=== PATIENT | female | born 1990 | race African-American/Black ===

== ENCOUNTER 2016-07-11 15:24 | Emergency (ER) | payer OTHER ==
[~2016-07-11] VITALS: Ht 154.9 cm; Wt 102.0 kg
[~2016-07-11 15:24] MED LIST: FERR1TAB36 PO; PROP10TA6 PO; SPRI28TA PO
[2016-07-11 15:27] VITALS: BP 127/72; PULSE 88; RESP 14; TEMP 98.2; O2SAT 98
[2016-07-11] MEDS ORDERED: SODIUM CHLOR 0.9% 1000 ML INJ 1,000 ML IV SCH (16:40)
[2016-07-11 16:42] VITALS: RESP 17; O2SAT 99
[2016-07-11 16:48] VITALS: BP 117/58; PULSE 78; RESP 17; O2SAT 99
[2016-07-11 17:11] LABS: AUTOMATED NEUTROPHIL # 5.3 TH/MM3 (1.8-7.7); BASOPHIL # 0.1 TH/MM3 (0-0.2); BASOPHIL % 0.9 % (0.0-2.0); EOSINOPHIL # 0.5 TH/MM3 (0-0.4); EOSINOPHIL % 5.4 % (0.0-4.0); HEMATOCRIT 30.1 % (35.0-46.0); LYMPH % 24.6 % (9.0-44.0); LYMPHOCYTE # 2.1 TH/MM3 (1.0-4.8); MEAN CELL VOLUME 66.3 FL (80.0-100.0); MEAN CORPUSCULAR HEMOGLOBIN 19.9 PG (27.0-34.0); MONO % 6.2 % (0.0-8.0); NEUT % 62.9 % (16.0-70.0); PLATELET COUNT 378 TH/MM3 (150-450); RED BLOOD COUNT 4.54 MIL/MM3 (4.00-5.30); RED CELL DISTRIBUTION WIDTH 22.2 % (11.6-17.2); WHITE BLOOD COUNT 8.5 TH/MM3 (4.0-11.0)
[2016-07-11] MEDS ORDERED: ACETAMINOPHEN/HYDROcodone 325 MG/5 MG TAB PO ONE (17:15)
[2016-07-11 17:19] LABS: HEMO FLAGS AUTO DIFF
[2016-07-11 17:21] LABS: APTT (PATIENT) 25.9 SEC (24.3-30.1); PROTHROMBIN TIME - PATIENT 11.4 SEC (9.8-11.6)
--- NOTE | 2016-07-11 17:26 | RADRPT ---
EXAM DATE/TIME: 07/11/2016 17:05 [facility] COMPARISON: CHEST PA & LAT, December 02, 2012, 20:55. INDICATIONS : Chest pain. MEDICAL HISTORY : None. SURGICAL HISTORY : None. ENCOUNTER: Initial ACUITY: 4 - 6 days PAIN SCORE: 6/10 LOCATION: Bilateral chest FINDINGS: A single view of the chest demonstrates the lungs to be symmetrically aerated without evidence of mas s, infiltrate or effusion. The cardiomediastinal contours are unremarkable. Osseous structures are intact. CONCLUSION: No acute disease. Edward Reeves MD on July 11, 2016 at 17:25 Board Certified Radiologist. This report was verified electronically.
--- NOTE | 2016-07-11 17:27 | RADRPT ---
EXAM DATE/TIME: 07/11/2016 17:10 [facility] COMPARISON: CT BRAIN W/O CONTRAST, January 08, 2015, 0:51. INDICATIONS : Cephalgia today. RADIATION DOSE: 44.36 CTDIvol (mGy) MEDICAL HISTORY : Cardiovascular disease. Hypertension. SURGICAL HISTORY : Cholecystectomy. ENCOUNTER: Initial ACUITY: 1 day PAIN SCALE: 6/10 LOCATION: cranial TECHNIQUE: Multiple contiguous axial images were obtained of the head. Using automated exposure control and adj ustment of the mA and/or kV according to patient size, radiation dose was kept as low as reasonably a chievable to obtain optimal diagnostic quality images. FINDINGS: CEREBRUM: The ventricles are normal for age. No evidence of midline shift, mass lesion, hemorrhage or acute in farction. No extra-axial fluid collections are seen. POSTERIOR FOSSA: The cerebellum and brainstem are intact. The 4th ventricle is midline. The cerebellopontine angle i s unremarkable. EXTRACRANIAL: The visualized portion of the orbits is intact. SKULL: The calvaria is intact. No evidence of skull fracture. CONCLUSION: Normal examination for a patient of this age. No significant change has occurred. Travis Roberts MD on July 11, 2016 at 17:25 Board Certified Radiologist. This report was verified electronically.
[2016-07-11 17:40] LABS: ANION GAP 7 MEQ/L (5-15); BICARBONATE 24.4 MEQ/L (21.0-32.0); BLOOD UREA NITROGEN 7 MG/DL (7-18); CHLORIDE 106 MEQ/L (98-107); GLOMERULAR FILTRATION RATE 140 ML/MIN (>89); MAGNESIUM 2.1 MG/DL (1.5-2.5); SODIUM (NA) 137 MEQ/L (136-145)
[2016-07-11 17:47] LABS: OVALOCYTES 1+ (NORMAL)
[2016-07-11 17:48] LABS: SCAN/DIFF AUTO DIFF CONFIRMED
[2016-07-11 17:51] LABS: POTASSIUM 4.7 MEQ/L (3.5-5.1)
[2016-07-11 18:20] VITALS: RESP 16
[2016-07-11] MEDS ORDERED: ZOFR4TAB PO (18:39)
[2016-07-11] MEDS ORDERED: TRAM50TA PO (18:39)
--- NOTE | 2016-07-11 18:47 | PD ---
HPI Chief Complaint: Chest Pain Time Seen by Provider: 18:41 Travel History International Travel<30 days: No Contact w/Intl Traveler<30days: No Traveled to known affect area: No History of Present Illness HPI 25-year-old female that presents to the ED for evaluation of chest pain and headache. Per patient she's had chest pain or headache for the past 2 days. Per patient she has a history of irregular menses with severe bleeding and anemia. Per patient she went to see Dr. White today for her follow-up and to get evaluation for this and she was sent here secondary to chest pain. Also history of anemia. She states that the chest pain is on and off. Feels like a pressure. Patient states that she did have some nausea and some headache for the past couple days and she states that is a little more severe than her usual but she does have a history of migraine headaches in the past and does feel somewhat similar. She denies any shortness of breath. She denies any abdominal pain. She states that she is currently on her menses and her menses his heavy but denies any clots or . She states that she is compliant with her medications. She states that her headache is 6 out of 10 and her pain on the chest is 7 out of 10. Nothing makes her better worse. No radiation. The pain on the headache is constant and achy. Pressure-like. She has no allergies to medication. PFSH Past Medical History Hx Anticoagulant Therapy: No Anemia: Yes (R/T DYSFUNCTIONAL UTERINE BLEEDING) Asthma: Yes (CHILDHOOD) Anxiety: Yes Depression: Yes Heart Rhythm Problems: Yes (TACHYCARDIA) Cardiovascular Problems: Yes (tachycardia) Chemotherapy: No Chest Pain: Yes Cerebrovascular Accident: No Diabetes: No Diminished Hearing: No Gastrointestinal Disorders: Yes (GALLBLADDER REMOVED ) GERD: Yes Headaches: Yes Respiratory: No Immunizations Current: Yes Migraines: Yes Tetanus Vaccination: > 5 Years Influenza Vaccination: No ?: Not LMP: 07/09/16 : 0 Para: 0 Miscarriage: 0 : 0 Past Surgical History Cholecystectomy: Yes (when pt. was 11 y.o) Hysterectomy: No Social History Alcohol Use: No Tobacco Use: Yes (wear glasses) Substance Use: No Allergies-Medications (Allergen,Severity, Reaction): Coded Allergies: No Known Allergies (Verified , 07/11/16) Reported Meds & Prescriptions Reported Meds & Active Scripts Active Zofran (Ondansetron HCl) 4 Mg Tab 4 Mg PO Q6HR PRN Tramadol (Tramadol HCl) 50 Mg Tab 50 Mg PO Q6H PRN Propranolol (Propranolol HCl) 10 Mg Tab 10 Mg PO Q12HR Sprintec 28 (Norgestimate-Ethinyl Estradiol) 0.25-35 mg-Mcg Tab 1 Tab PO DAILY Iron (Ferrous Sulfate) 325 Mg Tab 325 Mg PO DAILY Take Review of Systems General / Constitutional: No: Fever, Chills, Weight Gain, Weight Loss, Other Eyes: No: Diploplia, Blurred Vision, Photophobia, Drainage, Redness, Foreign Body Sensation, Pain, Tearing, Blind Spots, Visual changes, Blindness, Other HENT: Positive: Headaches, No: Vertigo, Lightheadedness, Sore Throat, Rhinitis , Rhinorrhea, Congestion, Nosebleed, Neck Stiffness, Neck Pain, Masses, Gingival Bleeding, Dental Difficulties, Ear Discharge, Earache, Other Cardiovascular: Positive: Chest Pain or Discomfort, No: Palpitations, Irregular Rhythm, Tachycardia, Diaphoresis, Syncope, Dyspnea on exertion, Varicosities, Edema, Cyanosis, Varicosities, Phlebitis, Claudication, Other Respiratory: Positive: Cough, No: Shortness of Breath, Wheezing, Sneezing, Orthopnea, Hemoptysis, Stridor, Night Sweats, Pleuritic Pain, Other Gastrointestinal: Positive: Nausea, Vomiting, No: Diarrhea, Abdominal Pain, Hematemesis, Hematochezia, Constipation, Changes in Bowel Habits, Indigestion, Dysphagia, Loss of Appetite, Other Genitourinary: Positive: Vaginal Bleeding, No: Urgency, Frequency, Dysuria, Nocturia, Hematuria, Decreased Urinary Output, Oliguria, Hesitancy, Dribbling, Incontinence, Pelvic Pain, Flank Pain, Dyspareunia, Discharge, Dysmenorrhea, Menorrhagia, Metorrhagia, Other Musculoskeletal: No: Myalgias, Arthralgias, Limited ROM, Weakness, Cramping, Edema, Pain, Atrophy, Other Skin: No Rash, No Itching, No Dryness, No Lumps, No Hives, No Change in Pigmentation, No Change in nails, No Alopecia, No Lesions, No Breast Lumps, No Breast Tenderness, No Breast Swelling, No Other Neurologic: No: Weakness, Dizziness, Syncope, Focal Abnormalities, Coordination Problem, Tremor, Ataxia, Headache, Change in Mentation, Slurred Speech, Paresthesia, Incontinence, Seizures, Sensory Disturbance, Other Psychiatric: No: Anxiety, Depression, Suicidal Ideations, Disorder of Thought, Mood Disorder, Substance Abuse, Homicidal Ideation, Other Endocrine: No: Heat Intolerance, Cold Intolerance, Polyuria, Polydipsia, Other Hematologic/Lymphatic: No: Easy Bruising, Lymph Node Enlargement, Other Physical Exam Narrative GENERAL: SKIN: Warm and dry. HEAD: Atraumatic. Normocephalic. EYES: Pupils equal and round 4 mm reactive to light and accommodation. No scleral icterus. No injection or drainage. ENT: No nasal bleeding or discharge. Mucous membranes pink and moist. Tongue is midline. No uvula deviation. NECK: Trachea midline. No JVD. CARDIOVASCULAR: Regular rate and rhythm. No murmurs, S3, S4. RESPIRATORY: No accessory muscle use. Clear to auscultation. Breath sounds equal bilaterally. GASTROINTESTINAL: Abdomen soft, non-tender, nondistended. Hepatic and splenic margins not palpable. MUSCULOSKELETAL: Extremities without clubbing, cyanosis, or edema. No obvious deformities. Full range of motion of the upper and lower extremities bilaterally. 2+ pulses bilaterally. NEUROLOGICAL: Awake and alert. No obvious cranial nerve deficits. Motor grossly within normal limits. Five out of 5 muscle strength in the arms and legs. Normal speech. PSYCHIATRIC: Appropriate mood and affect; insight and judgment normal. Data Data Last Documented VS Vital Signs Date Time Temp Pulse Resp B/P Pulse Ox O2 Delivery O2 Flow Rate FiO2 07/11/16 18:20 16 07/11/16 16:48 78 117/58 99 Room Air 07/11/16 15:27 98.2 Orders Electrocardiogram (07/11/16 ) Complete Blood Count With Diff (07/11/16 16:38) Basic Metabolic Panel (Bmp) (07/11/16 16:38) Troponin I (07/11/16 16:38) Prothrombin Time / Inr (Pt) (07/11/16 16:38) Act Partial Throm Time (Ptt) (07/11/16 16:38) Magnesium (Mg) (07/11/16 16:38) Thyroid Stimulating Hormone (07/11/16 16:38) Chest, Single Ap (07/11/16 16:38) Ct Brain W/O Iv Contrast(Rout) (07/11/16 16:38) Iv Access Insert/Monitor (07/11/16 16:38) Ecg Monitoring (07/11/16 16:38) Oximetry (07/11/16 16:38) Ed Urine Pregnancytest Poc (07/11/16 16:38) Sodium Chlor 0.9% 1000 Ml Inj (Ns 1000 M (07/11/16 16:40) Acetamin-Hydrocod 325-5 Mg ([place] 5-325 (07/11/16 17:15) Labs Laboratory Tests Test 07/11/16 16:45 White Blood Count 8.5 TH/MM3 Red Blood Count 4.54 MIL/MM3 Hemoglobin 9.0 GM/DL Hematocrit 30.1 % Mean Corpuscular Volume 66.3 FL Mean Corpuscular Hemoglobin 19.9 PG Mean Corpuscular Hemoglobin 30.0 % Concent Red Cell Distribution Width 22.2 % Platelet Count 378 TH/MM3 Mean Platelet Volume 9.1 FL Neutrophils (%) (Auto) 62.9 % Lymphocytes (%) (Auto) 24.6 % Monocytes (%) (Auto) 6.2 % Eosinophils (%) (Auto) 5.4 % Basophils (%) (Auto) 0.9 % Neutrophils # (Auto) 5.3 TH/MM3 Lymphocytes # (Auto) 2.1 TH/MM3 Monocytes # (Auto) 0.5 TH/MM3 Eosinophils # (Auto) 0.5 TH/MM3 Basophils # (Auto) 0.1 TH/MM3 CBC Comment AUTO DIFF Differential Comment AUTO DIFF CONFIRMED Ovalocytes 1+ Prothrombin Time 11.4 SEC Prothromb Time International 1.0 RATIO Ratio Activated Partial 25.9 SEC Thromboplast Time Sodium Level 137 MEQ/L Potassium Level 4.7 MEQ/L Chloride Level 106 MEQ/L Carbon Dioxide Level 24.4 MEQ/L Anion Gap 7 MEQ/L Blood Urea Nitrogen 7 MG/DL Creatinine 0.63 MG/DL Estimat Glomerular Filtration 140 ML/MIN Rate Random Glucose 94 MG/DL Calcium Level 8.4 MG/DL Magnesium Level 2.1 MG/DL Troponin I LESS THAN 0.02 NG/ML Thyroid Stimulating Hormone 0.510 uIU/ML 3rd Gen [facility] Medical Decision Making Medical Screen Exam Complete: Yes Emergency Medical Condition: Yes Medical Record Reviewed: Yes Interpretation(s) CBC & BMP Diagram 07/11/16 16:45 troponin negative EKG shows sinus rhythm with no sign of acute ischemia or arrhythmia read by me and attending. UA negative. Last Impressions Head CT 07/11/16 1638 Signed Impressions: Service Date/Time: Monday, July 11, 2016 17:10 - CONCLUSION: Normal examination for a patient of this age. No significant change has occurred. Travis Roberts MD Chest X-Ray 07/11/16 1638 Signed Impressions: Service Date/Time: Monday, July 11, 2016 17:05 - CONCLUSION: No acute disease. Edward Reeves MD Differential Diagnosis Chest pain versus a typical chest pain versus headache versus migraine headache versus tension headache versus anemia versus anxiety Narrative Course 25-year-old female that presents to the ED for evaluation of chest pain and headache. Patient was properly examined and was found to have signs and symptoms consistent appears to be noncardiac chest pain and what appears to be tension headache. Labs and imaging ordered. Labs and imaging were essentially unremarkable. Patient was reassured. Patient feels improved after given 1 Lortab here with Zofran and fluids. Patient agrees with discharge instructions. Patient was given prescription for tramadol for pain and Zofran for nausea. Told to drink plenty of fluids. Follow up with PCP. See ED worsening symptoms. Diagnosis Primary Impression: Headache Qualified Code: G44.209 - Acute non intractable tension-type headache Additional Impression: Atypical chest pain Patient Instructions: General Instructions, Narcotic given in the ED Additional Instructions: Take medications as prescribed. Follow-up with PCP. See ED for any worsening symptoms. Do not drink or drive while taking pain medication. Apply ice or heat as needed for pain Med/Other Pt SpecificInfo: Prescription(s) given Scripts Ondansetron (Zofran)4 Mg Tab4 Mg PO Q6HR PRN (NAUSEA OR VOMITING) #20 TAB Prov:Marcus Burns MD 07/11/16 Tramadol 50 Mg Tab50 Mg PO Q6H PRN (PAIN) #12 TAB Ref 0 Prov:Marcus Burns MD 07/11/16 Disposition: 01 DISCHARGE HOME Condition: Stable Pritesh Larios Jul 11, 2016 18:47
[2016-07-11 19:08] VITALS: BP 110/77; TEMP 97.8
--- NOTE | 2016-07-11 21:04 | EKG ---
Date Performed: 07/11/2016 Time Performed: 16:38:51 PTAGE: 25 years EKG: Sinus rhythm NORMAL ECG PREVIOUS TRACING : 07/23/2014 20.41 No significant change from previous tracing noted. DOCTOR: Hussain Cobos Interpretating Date/Time 07/11/2016 21:03:47
[2016-11-03] MEDS ORDERED: PROP10TA6 PO (15:28)
[2016-11-03] MEDS ORDERED: SPRI28TA PO (15:28)
[2016-11-11] MEDS ORDERED: PROP10TA6 PO (14:52)
== END 2016-07-11 19:09 | disposition home or self-care (01) ==
LOC: NEPE 15:24
DX: G44.209 Tension-type headache, unspecified, not intractable (principal); R07.89 Other chest pain; I10 Essential (primary) hypertension; D64.9 Anemia, unspecified; Z72.0 Tobacco use
CPT/HCPCS: 70450; 71010; 80048; 83735; 84443; 84484; 84703; 85025; 85610; 85730; 93005; 96360; 99285; J7030

== ENCOUNTER → 2016-12-17 | Outpatient (CLI) | payer OTHER ==
[~2016-12-17] MED LIST changes: +BACT800T5 PO; +FERR325T8 PO; +TRAM50TA PO; +ZOFR4TAB PO
[2016-12-17 12:06] LABS: HEMATOCRIT 31.8 % (35.0-46.0); MEAN CELL VOLUME 63.8 FL (80.0-100.0); MEAN CORPUSCULAR HEMOGLOBIN 20.9 PG (27.0-34.0); MEAN CORPUSCULAR HGB CONC 32.7 % (32.0-36.0); PLATELET COUNT 403 TH/MM3 (150-450); RED BLOOD COUNT 4.97 MIL/MM3 (4.00-5.30); RED CELL DISTRIBUTION WIDTH 23.9 % (11.6-17.2); REVIEW FLAG FINAL; WHITE BLOOD COUNT 7.2 TH/MM3 (4.0-11.0)
== END ==
LOC: CLAB 11:38
PROVIDERS: ATTEND Nurse Practitioner Family
DX: N92.6 Irregular menstruation, unspecified (principal)
CPT/HCPCS: 36415; 85027

== ENCOUNTER 2016-12-29 17:30 | Emergency (ER) | payer OTHER ==
[~2016-12-29] VITALS: Ht 154.9 cm; Wt 99.5 kg
[~2016-12-29 17:30] MED LIST changes: -BACT800T5 PO; -FERR1TAB36 PO; -SPRI28TA PO; -TRAM50TA PO; -ZOFR4TAB PO
[2016-12-29 17:31] VITALS: BP 142/71; PULSE 107; RESP 20; TEMP 98.7; O2SAT 100
--- NOTE | 2016-12-29 17:40 | PD ---
Physical Exam Time Seen by Provider: 17:38 Narrative 26yo F c/o lower back pain, lower ab pain, abnormal vag dc x 1 1/2 months. + sharp, shooting pains into vagina. Denies fever, vomiting. Denies diarrhea, constipation. LMP last week. Patient seen in triage. VS reviewed. Awaiting bed placement. Data Data Last Documented VS Vital Signs Date Time Temp Pulse Resp B/P Pulse Ox O2 Delivery O2 Flow Rate FiO2 12/29/16 17:31 98.7 107 20 142/71 100 Room Air MDM Supervised Visit with KALEIGH: Dixie Alvarez Dec 29, 2016 17:39
[2016-12-29 19:50] LABS: BACTERIA, URINE MOD /hpf; BLOOD, URINE NEG (NEG); COMMENT (UR) CULTURE INDICATED; CULTURE IF INDICATED CULTURE INDICATED; GLUCOSE,URINE NEG (NEG); KETONE, URINE TRACE mg/dL (NEG); MUCUS URINE FEW /lpf (OCC); NITRITE,URINE NEG (NEG); PH, URINE 6.5 (5.0-8.5); SQUAMOUS EPITHELIAL CELL URINE 36 /hpf (0-5); URINE COLOR YELLOW (YELLW/STRAW)
--- NOTE | 2016-12-29 20:49 | PD ---
Physical Exam Date Seen by Provider: Dec 29, 2016 Time Seen by Provider: 20:43 Narrative I was asked to perform pelvic exam by Dr. Car Data Data Last Documented VS Vital Signs Date Time Temp Pulse Resp B/P Pulse Ox O2 Delivery O2 Flow Rate FiO2 12/29/16 17:31 98.7 107 20 142/71 100 Room Air Orders Urinalysis - C+S If Indicated (12/29/16 18:40) Urine Culture (12/29/16 18:15) Gc And Chlamydia Pcr (12/29/16 20:42) Wet Prep Profile (12/29/16 20:42) Ed Urine Pregnancytest Poc (12/29/16 20:42) Labs Laboratory Tests Test 12/29/16 18:15 Urine Color YELLOW Urine Turbidity CLOUDY Urine pH 6.5 Urine Specific [place] 1.031 Urine Protein 30 mg/dL Urine Glucose (UA) NEG mg/dL Urine Ketones TRACE mg/dL Urine Occult Blood NEG Urine Nitrite NEG Urine Bilirubin NEG Urine Urobilinogen LESS THAN 2.0 MG/DL Urine Leukocyte Esterase LARGE Urine RBC 4 /hpf Urine WBC 24 /hpf Urine Squamous Epithelial 36 /hpf Cells Urine Bacteria MOD /hpf Urine Mucus FEW /lpf Microscopic Urinalysis Comment CULTURE INDICATED MDM Medical Record Reviewed: Yes Supervised Visit with KALEIGH: No Narrative Course PELVIC: Laury SUTTON present: foul odor, + clear drainage from cervix, no cervical motion tenderness, cervical os erythematous without masses Condition: Stable Carmel Chávez Dec 29, 2016 20:49
[2016-12-29 20:54] VITALS: BP 134/70; PULSE 98; RESP 20; O2SAT 98
--- NOTE | 2016-12-29 21:09 | PD ---
HPI Chief Complaint: Abdominal Pain Time Seen by Provider: 20:37 Travel History International Travel<30 days: No Contact w/Intl Traveler<30days: No Traveled to known affect area: No History of Present Illness HPI 26-year-old female here for evaluation of lower abdominal pains and bilateral flank pains. The patient reports having these pains for about 1.5 months and describes them as sharp. Pain is intermittent. History of cholecystectomy. No other abdominal surgeries. She denies fevers or chills. She is having some clearish vaginal discharge. She is sexually active with one partner and believe she is in a monogamous relationship. She denies urinary symptoms. She is currently pain-free. PFSH Past Medical History Hx Anticoagulant Therapy: No Anemia: Yes (R/T DYSFUNCTIONAL UTERINE BLEEDING) Asthma: Yes (CHILDHOOD) Anxiety: Yes Depression: Yes Heart Rhythm Problems: Yes (TACHYCARDIA) Cardiovascular Problems: Yes (tachycardia) Chemotherapy: No Chest Pain: Yes Cerebrovascular Accident: No Diabetes: No Diminished Hearing: No Gastrointestinal Disorders: Yes (GALLBLADDER REMOVED ) GERD: Yes Headaches: Yes Respiratory: No Immunizations Current: Yes Migraines: Yes ?: Not LMP: 1 week ago : 0 Para: 0 Miscarriage: 0 : 0 Past Surgical History Cholecystectomy: Yes (when pt. was 11 y.o) Hysterectomy: No Social History Alcohol Use: No Tobacco Use: Yes (wear glasses) Substance Use: No Allergies-Medications (Allergen,Severity, Reaction): Coded Allergies: No Known Allergies (Verified , 12/26/16) Reported Meds & Prescriptions Reported Meds & Active Scripts Active Ferrous Sulfate 325 Mg (65 Mg Iron) Tablet 325 Mg PO DAILY Propranolol (Propranolol HCl) 10 Mg Tab 10 Mg PO Q12HR Review of Systems Except as stated in HPI: all other systems reviewed are Neg Physical Exam Narrative GENERAL: Well-developed, well-nourished, overweight, comfortable, no apparent distress. SKIN: Focused skin assessment warm/dry. HEAD: Atraumatic. Normocephalic. EYES: Pupils equal and round. No scleral icterus. No injection or drainage. ENT: Mucous membranes pink and moist. CARDIOVASCULAR: Regular rate and rhythm. No murmur appreciated. RESPIRATORY: No accessory muscle use. Clear to auscultation. Breath sounds equal bilaterally. GASTROINTESTINAL: Abdomen soft, non-tender, nondistended. MUSCULOSKELETAL: No obvious deformities. No clubbing. No cyanosis. No edema. No CVA tenderness. NEUROLOGICAL: Awake and alert. No obvious cranial nerve deficits. Motor grossly within normal limits. Normal speech. PSYCHIATRIC: Appropriate mood and affect; insight and judgment normal. Data Data Last Documented VS Vital Signs Date Time Temp Pulse Resp B/P Pulse Ox O2 Delivery O2 Flow Rate FiO2 12/29/16 20:54 98 20 134/70 98 Room Air 12/29/16 17:31 98.7 Orders Urinalysis - C+S If Indicated (12/29/16 18:40) Urine Culture (12/29/16 18:15) Gc And Chlamydia Pcr (12/29/16 20:42) Wet Prep Profile (12/29/16 20:42) Ed Urine Pregnancytest Poc (12/29/16 20:42) Labs Laboratory Tests Test 12/29/16 12/29/16 18:15 20:48 Urine Color YELLOW Urine Turbidity CLOUDY Urine pH 6.5 Urine Specific [place] 1.031 Urine Protein 30 mg/dL Urine Glucose (UA) NEG mg/dL Urine Ketones TRACE mg/dL Urine Occult Blood NEG Urine Nitrite NEG Urine Bilirubin NEG Urine Urobilinogen LESS THAN 2.0 MG/DL Urine Leukocyte Esterase LARGE Urine RBC 4 /hpf Urine WBC 24 /hpf Urine Squamous Epithelial 36 /hpf Cells Urine Bacteria MOD /hpf Urine Mucus FEW /lpf Microscopic Urinalysis Comment CULTURE INDICATED Clue Cells (Wet Prep) NONE SEEN Vaginal Trichomonas (Wet Prep) NONE SEEN Vaginal Yeast (Wet Prep) NONE SEEN MDM Medical Decision Making Medical Screen Exam Complete: Yes Emergency Medical Condition: Yes Medical Record Reviewed: Yes Differential Diagnosis Cystitis, pyelonephritis, nephrolithiasis, , ectopic , appendicitis/acute intra-abdominal process unlikely, PID, STI, ovarian cyst, ovarian torsion unlikely Narrative Course Pelvic exam performed by my nurse practitioner Carmel Cornejo patient well from the community clinic and states that the patient has been seen there several times regarding similar pains. Pelvic exam is remarkable for clearish/ somewhat foul-smelling vaginal discharge. No CMT. No adnexal masses or tenderness. Urine is negative. UA is suggestive of UTI. Wet prep is negative for yeast, negative for Trichomonas, negative for clue cells. Patient will be started on Bactrim for her UTI. There is no abdominal tenderness on exam, and I do not believe that there is an acute intra-abdominal process/surgical process to warrant labs or imaging at this time. Patient's symptoms are most likely related to her UTI/cystitis. Patient instructed to follow-up with her primary care physician this week. She was informed on when to return to the emergency department. She verbalizes understanding and agreement with plan. Diagnosis Primary Impression: UTI (urinary tract infection) Qualified Code: N30.01 - Acute cystitis with hematuria Referrals: Primary Care Physician 3 days Additional Instructions: Follow-up with your primary care physician this week. Return to the emergency department for worsening symptoms or any other concerns. Scripts Sulfamethoxazole-Trimethoprim (Bactrim DS)800-160 Mg Tab1 Tab PO BID #14 TAB Ref 0 Prov:Vineet Car MD 12/29/16 Disposition: 01 DISCHARGE HOME Condition: Stable Vineet Car MD Dec 29, 2016 21:09
[2016-12-29] MEDS ORDERED: BACT800T5 PO (21:23)
[2016-12-29] MEDS ORDERED: SULFAMETHOXAZOLE-TRIMETHOPRIM DS 800-160 MG TAB PO ONE (21:30)
[2016-12-29 23:05] LABS: CHLAMYDIA PCR NOT DETECTED (NOT DETECT); NEISSERIA PCR NOT DETECTED (NOT DETECT)
[2017-02-05] MEDS ORDERED: SPRI28TA PO (07:18)
== END 2016-12-29 22:11 | disposition home or self-care (01) ==
LOC: NEPD 17:30
DX: N30.01 Acute cystitis with hematuria (principal); N89.8 Other specified noninflammatory disorders of vagina; Z86.2 Personal history of diseases of the blood and blood-forming organs and certain disorders involving the immune mechanism; Z87.09 Personal history of other diseases of the respiratory system; Z86.59 Personal history of other mental and behavioral disorders; Z86.79 Personal history of other diseases of the circulatory system; Z87.19 Personal history of other diseases of the digestive system; Z86.69 Personal history of other diseases of the nervous system and sense organs
CPT/HCPCS: 81001; 84703; 87086; 87210; 87491; 87591; 99284

== ENCOUNTER 2017-11-09 17:26 | Emergency (ER) | payer SELFPAY ==
[~2017-11-09] VITALS: Ht 154.9 cm; Wt 101.5 kg
[~2017-11-09 17:26] MED LIST changes: +BACT800T5 PO; +FERR325T18 PO; -FERR325T8 PO; +SPRI28TA PO
[2017-11-09 17:32] VITALS: BP 138/65; PULSE 97; RESP 15; TEMP 98.3; O2SAT 100
[2017-11-09 19:17] LABS: AUTOMATED NEUTROPHIL # 2.5 TH/MM3 (1.8-7.7); BASOPHIL # 0.1 TH/MM3 (0-0.2); EOSINOPHIL # 0.3 TH/MM3 (0-0.4); HEMATOCRIT 32.1 % (35.0-46.0); HEMOGLOBIN 9.8 GM/DL (11.6-15.3); LYMPHOCYTE # 2.3 TH/MM3 (1.0-4.8); MEAN CELL VOLUME 67.6 FL (80.0-100.0); MEAN CORPUSCULAR HEMOGLOBIN 20.6 PG (27.0-34.0); MEAN CORPUSCULAR HGB CONC 30.4 % (32.0-36.0); MEAN PLATELET VOLUME 9.5 FL (7.0-11.0); MONOCYTE # 0.6 TH/MM3 (0-0.9); PLATELET COUNT 325 TH/MM3 (150-450); RED BLOOD COUNT 4.75 MIL/MM3 (4.00-5.30); RED CELL DISTRIBUTION WIDTH 18.9 % (11.6-17.2); WHITE BLOOD COUNT 5.8 TH/MM3 (4.0-11.0)
--- NOTE | 2017-11-09 19:27 | EKG ---
Date Performed: 11/09/2017 Time Performed: 17:45:45 PTAGE: 26 years EKG: Sinus rhythm NORMAL ECG No significant change from prior electrocardiogram. DOCTOR: Jose Willard Interpretating Date/Time 11/09/2017 19:26:10
[2017-11-09 19:33] LABS: BLOOD UREA NITROGEN 8 MG/DL (7-18); CALCIUM 8.5 MG/DL (8.5-10.1); CHLORIDE 107 MEQ/L (98-107); CREATININE 0.67 MG/DL (0.50-1.00); GLOMERULAR FILTRATION RATE 130 ML/MIN (>89); GLUCOSE,RANDOM 87 MG/DL (74-106); SODIUM (NA) 139 MEQ/L (136-145)
[2017-11-09 19:34] LABS: BICARBONATE 21.6 MEQ/L (21.0-32.0)
[2017-11-09 19:38] LABS: TROPONIN I LESS THAN 0.02 NG/ML (0.02-0.05)
[2017-11-09] MEDS ORDERED: DICL75TA PO (21:09)
--- NOTE | 2017-11-09 21:13 | PD ---
HPI Chief Complaint: Chest Pain Time Seen by Provider: 21:02 Travel History International Travel<30 days: No Contact w/Intl Traveler<30days: No Traveled to known affect area: No History of Present Illness HPI 26-year-old black female presents emergency department with complaints of upper back pain for the past 2 months. She states the pain radiates down into her chest. She is concerned that she may have heart disease because she has periodontal disease. She states that she has a history of anxiety has been reading things on the Internet. She wanted to come in and get checked to make sure she is not having a heart attack. Patient denies any nausea vomiting. No diaphoresis or shortness of breath. Her pain is worse with movement. She has not followed up with her primary care doctor recently. She states that her physician has retired and she supposed to follow-up with [facility] but has not done this yet. Symptoms are moderate. Exacerbated by movement. Exacerbated by Internet research. No alleviating factors. PFSH Past Medical History Hx Anticoagulant Therapy: No Anemia: Yes (R/T DYSFUNCTIONAL UTERINE BLEEDING) Asthma: Yes (CHILDHOOD) Anxiety: Yes Depression: Yes Heart Rhythm Problems: Yes (TACHYCARDIA) Cardiovascular Problems: Yes (tachycardia) Chemotherapy: No Chest Pain: Yes Cerebrovascular Accident: No Diabetes: No Diminished Hearing: No Gastrointestinal Disorders: Yes (GALLBLADDER REMOVED ) GERD: Yes Headaches: Yes Respiratory: No Immunizations Current: Yes Migraines: Yes ?: Not : 0 Para: 0 Miscarriage: 0 : 0 Past Surgical History Cholecystectomy: Yes (when pt. was 11 y.o) Hysterectomy: No Social History Alcohol Use: No Tobacco Use: Yes (wear glasses) Substance Use: No Allergies-Medications (Allergen,Severity, Reaction): Coded Allergies: No Known Allergies (Verified , 12/26/16) Reported Meds & Prescriptions Reported Meds & Active Scripts Active Diclofenac Sodium DR (Diclofenac Sodium) 75 Mg Tabdr 75 Mg PO BID Sprintec 28 (Norgestimate-Ethinyl Estradiol) 0.25-35 mg-Mcg Tab 1 Tab PO DAILY Bactrim DS (Sulfamethoxazole-Trimethoprim) 800-160 Mg Tab 1 Tab PO BID Ferrous Sulfate 325 Mg (65 Mg Iron) Tablet 325 Mg PO DAILY Propranolol (Propranolol HCl) 10 Mg Tab 10 Mg PO Q12HR Review of Systems Except as stated in HPI: all other systems reviewed are Neg Physical Exam Narrative GENERAL: Well-developed, well-nourished in no apparent distress. Nontoxic appearing. HEAD: Normocephalic, atraumatic. EYES: Pupils equal round and reactive. Extraocular motions intact. No scleral icterus. No injection or drainage. ENT: Nose clear. Throat without erythema, tonsillar hypertrophy or exudate. Uvula midline. Airway patent. NECK: Trachea midline. Supple, nontender, moves head freely. No central bony tenderness or spasm. CARDIOVASCULAR: Regular rate and rhythm without murmurs, gallops, or rubs. RESPIRATORY: Clear to auscultation. Breath sounds equal bilaterally. No wheezes , rales, or rhonchi. GASTROINTESTINAL: Abdomen soft, non-tender, nondistended. No hepato-splenomegaly , or palpable masses. No guarding. EXTREMITIES: No clubbing, cyanosis, or edema. No joint tenderness. BACK: Nontender without deformity. No flank tenderness. NEUROLOGICAL: Awake, alert and oriented x 3 .Cranial nerves grossly intact. Motor and sensory grossly within normal limits. Normal speech. Data Data Last Documented VS Vital Signs Date Time Temp Pulse Resp B/P (MAP) Pulse Ox O2 Delivery O2 Flow Rate FiO2 11/09/17 17:32 98.3 97 15 138/65 (89) 100 Orders Orders Electrocardiogram (11/09/17 17:41) Complete Blood Count With Diff (11/09/17 17:41) Basic Metabolic Panel (Bmp) (11/09/17 17:41) Ckmb (Isoenzyme) Profile (11/09/17 17:41) Troponin I (11/09/17 17:41) Iv Access Insert/Monitor (11/09/17 17:41) Ecg Monitoring (11/09/17 17:41) Oxygen Administration (11/09/17 17:41) Oximetry (11/09/17 17:41) Ed Discharge Order (11/09/17 21:08) Labs Laboratory Tests Test 11/09/17 18:00 White Blood Count 5.8 TH/MM3 Red Blood Count 4.75 MIL/MM3 Hemoglobin 9.8 GM/DL Hematocrit 32.1 % Mean Corpuscular Volume 67.6 FL Mean Corpuscular Hemoglobin 20.6 PG Mean Corpuscular Hemoglobin Concent 30.4 % Red Cell Distribution Width 18.9 % Platelet Count 325 TH/MM3 Mean Platelet Volume 9.5 FL Neutrophils (%) (Auto) 44.0 % Lymphocytes (%) (Auto) 40.0 % Monocytes (%) (Auto) 10.0 % Eosinophils (%) (Auto) 5.0 % Basophils (%) (Auto) 1.0 % Neutrophils # (Auto) 2.5 TH/MM3 Lymphocytes # (Auto) 2.3 TH/MM3 Monocytes # (Auto) 0.6 TH/MM3 Eosinophils # (Auto) 0.3 TH/MM3 Basophils # (Auto) 0.1 TH/MM3 CBC Comment DIFF FINAL Differential Comment Blood Urea Nitrogen 8 MG/DL Creatinine 0.67 MG/DL Random Glucose 87 MG/DL Calcium Level 8.5 MG/DL Sodium Level 139 MEQ/L Potassium Level 3.6 MEQ/L Chloride Level 107 MEQ/L Carbon Dioxide Level 21.6 MEQ/L Anion Gap 10 MEQ/L Estimat Glomerular Filtration Rate 130 ML/MIN Total Creatine Kinase 73 U/L Troponin I LESS THAN 0.02 NG/ML MDM Medical Decision Making Medical Screen Exam Complete: Yes Emergency Medical Condition: Yes Medical Record Reviewed: Yes Differential Diagnosis Differential diagnosis: Coronary disease, atypical chest pain, anxiety, musculoskeletal pain Narrative Course Patient's history and exam is consistent with noncardiac atypical chest pain. She has musculoskeletal back pain. The patient here has a negative workup. EKG is unremarkable. Laboratory tests are unremarkable except for chronic anemia. The patient will be discharged and advised to follow-up with the [facility]. She is given diclofenac for pain. Diagnosis Primary Impression: Atypical chest pain Additional Impression: Musculoskeletal pain Referrals: [facility] 3 days Patient Instructions: General Instructions Additional Instructions: Rest. Medications as directed. Follow-up with the dentist for dental cleaning. Medical follow-up with the [facility] Med/Other Pt SpecificInfo: Prescription(s) given Scripts Diclofenac Sodium DR (Diclofenac Sodium DR) 75 Mg Tabdr 75 MG PO BID, #14 TAB 0 Refills Prov: Helene Ervin DO 11/09/17 Disposition: 01 DISCHARGE HOME Condition: Stable Greg Baxter Nov 09, 2017 21:13
== END 2017-11-09 21:35 | disposition home or self-care (01) ==
LOC: NEPD 17:26
DX: R07.89 Other chest pain (principal); M79.1 Myalgia
CPT/HCPCS: 80048; 82550; 84484; 85025; 93005; 99284